=== PATIENT | male | born 1945 | race Caucasian/White ===

== ENCOUNTER 2020-08-25 08:44 | Emergency (ER) | payer OTHER, MEDICARE ==
[~2020-08-25] VITALS: Ht 175.3 cm; Wt 83.9 kg
[2020-08-25 10:07] LABS: BASOPHILS ABSOLUTE AUTO 0.03 K/mm3 (0.00-0.23); BASOPHILS PERCENT AUTO 0 % (0-2); EOSINOPHILS ABSOLUTE AUTO 0.06 K/mm3 (0.00-0.68); EOSINOPHILS PERCENT AUTO 1 % (0-6); Hematocrit 48.7 % (37.0-53.0); Hemoglobin 17.5 g/dL (13.5-17.5); IMMATURE GRAN ABSOLUTE AUTO 0.02 K/mm3 (0.00-0.10); IMMATURE GRAN PERCENT AUTO 0 % (0-1); LYMPHOCYTES ABSOLUTE AUTO 1.62 K/mm3 (0.84-5.20); LYMPHOCYTES PERCENT AUTO 21 % (21-46); MONOCYTES ABSOLUTE AUTO 0.84 K/mm3 (0.16-1.47); MONOCYTES PERCENT AUTO 11 % (4-13); Mean Corpuscular HGB 32.5 pg (26.0-34.0); Mean Corpuscular HGB Conc 35.9 g/dL (31.5-36.5); Mean Corpuscular Volume 90 fL (80-100); Mean Platelet Volume 9.6 fL (9.1-12.4); NEUTROPHILS ABSOLUTE AUTO 5.35 K/mm3 (1.96-9.15); NEUTROPHILS PERCENT AUTO 67 % (41-73); Platelet Count 130 K/mm3 (150-400); RDW Coefficient Variation 12.2 % (11.7-14.2); RDW Standard Deviation 40.2 fL (35.1-46.3); Red Blood Cell Count 5.39 M/mm3 (4.30-5.90); White Blood Cell Count 7.92 K/mm3 (4.00-11.30)
[2020-08-25 10:22] LABS: Alanine Aminotransfer (ALT/SGP 49 U/L (12-78); Albumin, Blood 3.8 g/dL (3.4-5.0); Albumin/Globulin Ratio 1.1 (0.8-1.8); Alk Phos 82 U/L (50-136); Anion Gap 6 mmol/L (6-16); Aspartate Aminotrans (AST/SGOT 24 U/L (12-37); Blood Urea Nitrogen 18 mg/dL (8-24); Bun/Creatinine Ratio 26.9 (12.0-20.0); CO2, Blood 27 mmol/L (21-32); Calcium, Blood 9.2 mg/dL (8.5-10.1); Chloride, Blood 103 mmol/L (98-108); Creatinine, Blood 0.67 mg/dL (0.60-1.20); Globulin, Blood 3.5 g/dL (2.2-4.0); Glomerular Filtration Rate >60 (60-); Glucose, Blood 294 mg/dL (70-99); Potassium, Blood 4.5 mmol/L (3.5-5.5); Sodium, Blood 136 mmol/L (136-145); Total Protein, Blood 7.3 g/dL (6.4-8.2)
[2020-08-25] MEDS ORDERED: BACTRIM DS TAB1 EAC1 PO (12:06)
[2020-08-25] MEDS ORDERED: HYDR1TAB94 PO (12:06)
== END 2020-08-25 12:33 | disposition home or self-care (01) ==
LOC: ER 08:44
PROVIDERS: Emergency Medicine
DX: J32.9 Chronic sinusitis, unspecified (principal)
CPT/HCPCS: 36415; 70487; 80053; 85025; 96365-59; 99284-25; J3370; Q9967

== ENCOUNTER → 2020-08-26 | Outpatient (CLI) | payer MEDICARE, OTHER ==
[~2020-08-26] MED LIST: BACTRIM DS TAB1 EAC1 PO; HYDR1TAB94 PO
== END | disposition home or self-care (01) ==
LOC: LAB SHORT 13:00 → LAB 13:00
DX: L02.91 Cutaneous abscess, unspecified (principal)
CPT/HCPCS: 87070; 87075; 87077; 87186; 87205

== ENCOUNTER 2021-08-21 17:08 | Day surgery (SDC) | payer OTHER, MEDICARE ==
--- NOTE | 2021-08-21 17:03 | NUR ---
15 MIN POST INFUSION CHECK. PT HAS NO COMPLAINTS. SITTING IN CHAIR WATCHING TV
[~2021-08-21 17:08] MED LIST changes: +ALOGLIPTIN25 M1 PO; +ASPI81CH PO; +ATOR40TA PO; +Buspirone HCl15 MG PO; +DICLOFENAC SOD100 G1 TOP; +FINA5 PO; +GLIP10 PO; +JARDIANCE25 MG PO; +METF500 PO; +METO50ER PO
--- NOTE | 2021-08-21 17:32 | NUR ---
30 AND 45 MIN CHECKS DONE. PT CONTINUES TO HAVE NO REQUESTS OR COMPLAINTS. SITTING IN CHAIR WATCHING TV
== END 2021-08-21 17:49 | disposition home or self-care (01) ==
LOC: ATC 17:08
DX: U07.1 COVID-19 (principal)
CPT/HCPCS: M0247

== ENCOUNTER 2024-06-22 18:23 | Observation (INO) | payer OTHER ==
[~2024-06-22] VITALS: Ht 177.8 cm; Wt 74.0 kg
[~2024-06-22 18:23] MED LIST changes: +Aspirin 81 MG Chew PO ONE; +Heparin Sodium,Porcine 5,000 UNIT/0.5 ML SDV SC ONE; +Ticagrelor 90 MG TABLET PO ONE
[2024-06-22] MEDS ORDERED: Verapamil HCL 2.5 MG/ML 2ML Injection ONE (19:01)
[2024-06-22] MEDS ORDERED: FentaNYL Citrate 50 MCG/ML 2 ML Injection ONE (19:01)
[2024-06-22] MEDS ORDERED: NS 2,000 ML IV ONE (19:02)
[2024-06-22] MEDS ORDERED: NS 250 ML IV ONE (19:02)
[2024-06-22] MEDS ORDERED: Midazolam HCl 1MG / ML 2ML Vial ONE (19:02)
[2024-06-22] MEDS ORDERED: Heparin Sodium 1000 Units/ML 10ML MDV ONE (19:02)
[2024-06-22] MEDS ORDERED: Nitroglycerin 2 MG/20 ML BTL ONE (19:03)
[2024-06-22 19:12] LABS: BASOPHILS ABSOLUTE AUTO 0.03 K/mm3 (0.00-0.23); BASOPHILS PERCENT AUTO 0 % (0-2); EOSINOPHILS ABSOLUTE AUTO 0.23 K/mm3 (0.00-0.68); EOSINOPHILS PERCENT AUTO 3 % (0-6); Hematocrit 50.9 % (37.0-53.0); Hemoglobin 18.2 g/dL (13.5-17.5); IMMATURE GRAN ABSOLUTE AUTO 0.02 K/mm3 (0.00-0.10); IMMATURE GRAN PERCENT AUTO 0 % (0-1); LYMPHOCYTES ABSOLUTE AUTO 2.03 K/mm3 (0.84-5.20); LYMPHOCYTES PERCENT AUTO 22 % (21-46); MONOCYTES ABSOLUTE AUTO 1.11 K/mm3 (0.16-1.47); MONOCYTES PERCENT AUTO 12 % (4-13); Mean Corpuscular HGB 32.9 pg (26.0-34.0); Mean Corpuscular HGB Conc 35.8 g/dL (31.5-36.5); Mean Corpuscular Volume 92 fL (80-100); Mean Platelet Volume 9.7 fL (9.1-12.4); NEUTROPHILS ABSOLUTE AUTO 5.67 K/mm3 (1.96-9.15); NEUTROPHILS PERCENT AUTO 63 % (41-73); Platelet Count 128 K/mm3 (150-400); RDW Coefficient Variation 11.7 % (11.7-14.2); RDW Standard Deviation 39.8 fL (35.1-46.3); Red Blood Cell Count 5.54 M/mm3 (4.30-5.90); White Blood Cell Count 9.09 K/mm3 (4.00-11.30)
[2024-06-22 19:26] LABS: International Normalized Ratio 0.94; Prothrombin Time Results 10.1 Sec (9.7-11.5)
[2024-06-22 19:27] LABS: Albumin, Blood 4.4 g/dL (3.4-5.0); Albumin/Globulin Ratio 1.3 (0.8-1.8); Bun/Creatinine Ratio 34.6 (12.0-20.0); Calcium, Blood 10.1 mg/dL (8.5-10.1); Creatinine, Blood 0.64 mg/dL (0.60-1.20); Globulin, Blood 3.4 g/dL (2.2-4.0); Potassium, Blood 4.3 mmol/L (3.5-5.5); Total Protein, Blood 7.8 g/dL (6.4-8.2)
[2024-06-22] MEDS ORDERED: Atropine Sulfate 0.1 MG/ML 10ML SYR ONE (19:42)
[2024-06-22] MEDS ORDERED: Phenylephrine HCl 100 MCG/ML-NS 10MLSYR (1MG/10ML) ONE (19:42)
[2024-06-22 20:33] VITALS: BP 118/58
[2024-06-22] MEDS ORDERED: GLIP10 (20:47)
[2024-06-22] MEDS ORDERED: DULO60 PO (20:47)
[2024-06-22] MEDS ORDERED: POTA10T PO (20:48)
[2024-06-22] MEDS ORDERED: MAGNESIUM OXID500 MG PO (20:49)
[2024-06-22] MEDS ORDERED: MELO7.5 PO (20:49)
[2024-06-22 20:53] LABS: Calcium, Ionized (POC) 1.14 mmol/L (1.10-1.46); Chloride (POC) 99 mmol/L (98-108); Creatinine (POC) 0.7 mg/dL (0.8-1.3); Glucose (ISTAT POC) 205 mg/dL (70-99); Potassium (POC) 4.1 mmol/L (3.5-5.5); Sodium (POC) 137 mmol/L (135-148); Total CO2 (POC) 29 mmol/L (21-32)
[2024-06-22 21:00] VITALS: BP 118/58
[2024-06-22] MEDS ORDERED: Nitroglycerin/D5W 250 ML IV SCH (21:40)
--- NOTE | 2024-06-22 21:47 | NUR ---
THIS RN ASSUMED CARE OF PT AT 2032, PT IS ALERT AND ORIENTED X4, FOLLOWS COMMANDS AND IS NEUROLOGICALLY INTACT. PT HEART RATE IS IN THE 60s, PT WAS RATING CHEST PAIN 0-1 ON THE PAIN SCALE, PT DID NOT RECEIVE ANY INTERVENTIONS IN EEG TECH. BLOOD PRESSURE STABLE AT 118/58. DR. PENN WAS AT BEDSIDE, PROVIDER SAID TO START HEPARIN DRIP 4HRS AFTER TR BAND IS REMOVED, THEN USE NITRO DRIP PRN FOR CHEST PAIN. PT IS BEING TRANSPORTED TO [facility], MAEVE CARBAJAL IS THE ACCEPTING DOCTOR. PT IS AWARE AND WILL BE NOTIFIED ONCE PT GETS PICKED UP BY [facility] TRANSP[facility]. PT SOUNDS CLEAR/DIMINISHED, ON ROOM AIR SATTING >95%, PT DENIES SHORTNESS OF BREATH. PT VOIDS APPROPRIATELY. NO OTHER INTERVENTIONS AT THIS TIME. THIS RN WILL ATTEMPT TO REMOVE TR BAND PER PROTOCOL. PLAN OF CARE CONTINUED.
[2024-06-22 22:00] VITALS: BP 106/46
[2024-06-22] MEDS ORDERED: FLU VACC TS2024-25(6MOS UP)/PF 45 MCG/0.5 ML SYRINGE IM ONE (22:40)
[2024-06-22] MEDS ORDERED: Ondansetron HCl 2 MG / ML 2ML Vial IV PRN (22:40)
[2024-06-22 23:00] VITALS: BP 137/53
[2024-06-23] VITALS (10 sets, daily range): BP systolic 110–138; BP diastolic 39–71
--- NOTE | 2024-06-23 00:20 | NUR ---
PT ACT WAS 129, LESS THAN 200, PT HAS TR BAND ON RIGHT WRIST. UPON ARRIVAL TO THE ICU PT HAD 12cc OF AIR IN BAND. PT ARRIVED AT 2032. THIS RN TOOK 2cc OF AIR OUT AT 2132, THEN 2cc AT 2142, 2cc AT 2199, 3cc AT 2214, THEN 3cc AT 2229. THIS RN SAW NO BLEEDING AT SITE BUT KEPT BAND ON FOR ONE HOUR PER PROTOCOL. THIS RN ASSESSED SITE AT 2330, NO BLEEDING WAS SEEN, TR BAND WAS TAKEN OFF AND DRESSED WITH A CLEAR DRESSING. NO HEMATOMA PRESENT AND PT REPORTS NO BLEEDING. PT STILL HAVING ST ELEVATION PER MONITOR, WAS NOTIFIED, PROVIDER WANTED TO TREND TROPONIN LEVELS AND TO GET A REPEAT EKG AT 0600 ON 06/23/24, NO NEW INTERVENTIONS AT THIS TIME. PLAN OF CARE CONTINUED, PT IN THE PROCESS OF BEING TRANSFERED TO [facility].
[2024-06-23] MEDS ORDERED: Heparin Sodium,Porcine/0.5 NS 500 ML IV SCH (02:55)
[2024-06-23 03:22] LABS: BASOPHILS ABSOLUTE AUTO 0.03 K/mm3 (0.00-0.23); BASOPHILS PERCENT AUTO 0 % (0-2); EOSINOPHILS ABSOLUTE AUTO 0.15 K/mm3 (0.00-0.68); EOSINOPHILS PERCENT AUTO 2 % (0-6); Hematocrit 47.8 % (37.0-53.0); Hemoglobin 17.1 g/dL (13.5-17.5); IMMATURE GRAN ABSOLUTE AUTO 0.02 K/mm3 (0.00-0.10); IMMATURE GRAN PERCENT AUTO 0 % (0-1); LYMPHOCYTES ABSOLUTE AUTO 1.66 K/mm3 (0.84-5.20); LYMPHOCYTES PERCENT AUTO 18 % (21-46); MONOCYTES ABSOLUTE AUTO 1.19 K/mm3 (0.16-1.47); MONOCYTES PERCENT AUTO 13 % (4-13); Mean Corpuscular HGB 32.9 pg (26.0-34.0); Mean Corpuscular HGB Conc 35.8 g/dL (31.5-36.5); Mean Corpuscular Volume 92 fL (80-100); Mean Platelet Volume 9.9 fL (9.1-12.4); NEUTROPHILS ABSOLUTE AUTO 6.08 K/mm3 (1.96-9.15); NEUTROPHILS PERCENT AUTO 67 % (41-73); Platelet Count 97 K/mm3 (150-400); RDW Coefficient Variation 11.8 % (11.7-14.2); RDW Standard Deviation 39.4 fL (35.1-46.3); White Blood Cell Count 9.13 K/mm3 (4.00-11.30)
[2024-06-23 03:37] LABS: Prothrombin Time Results 10.7 Sec (9.7-11.5)
[2024-06-23 03:44] LABS: Albumin, Blood 3.7 g/dL (3.4-5.0); Albumin/Globulin Ratio 1.2 (0.8-1.8); Bilirubin, Total 1.5 mg/dL (0.1-1.0); Bun/Creatinine Ratio 32.1 (12.0-20.0); Calcium, Blood 9.2 mg/dL (8.5-10.1); Creatinine, Blood 0.56 mg/dL (0.60-1.20); Total Protein, Blood 6.7 g/dL (6.4-8.2)
--- NOTE | 2024-06-23 03:49 | NUR ---
PT SUMMARY PT IS BEING TRANSPORTED TO [facility] ICU ROOM 280. EMS WILL NOT BE ARRIVING UNTIL 0530 06/23/24 TO TRANSPORT PT TO [facility]. WAS NOTIFIED, PROVIDER SAID TO START HEPARIN EARLY FOR TRANSPORTATION. NO OTHER INTERVENTIONS AT THIS TIME. PLAN OF CARE CONTINUED.
== END 2024-06-23 06:38 | disposition short-term general hospital (02) ==
LOC: ER 18:23 → ICUE 18:24 → ER 18:45 → ICUE 19:52
PROVIDERS: Student in an Organized Health Care Education/Training Program; ADMIT Internal Medicine
DX: I21.09 ST elevation (STEMI) myocardial infarction involving other coronary artery of anterior wall (principal); I25.10 Atherosclerotic heart disease of native coronary artery without angina pectoris; E11.9 Type 2 diabetes mellitus without complications; I10 Essential (primary) hypertension; E78.5 Hyperlipidemia, unspecified; F17.210 Nicotine dependence, cigarettes, uncomplicated; Z95.5 Presence of coronary angioplasty implant and graft; Z79.84 Long term (current) use of oral hypoglycemic drugs; Z79.1 Long term (current) use of non-steroidal anti-inflammatories (NSAID); Z79.899 Other long term (current) drug therapy
CPT/HCPCS: 36415; 71045; 76937; 80047; 80053; 82947; 83735; 84484; 85014; 85025; 85347; 85610; 85730; 93005; 93010; 93458; 96374; 99152; 99153; 99291-25; A9270; C1769; C1887; C1894; C8929; J0461; J1644; J2250; J2371; J3010; J7030; J7050; Q9957; Q9967

== ENCOUNTER 2024-07-03 09:37 | Observation (INO) | payer OTHER ==
[~2024-07-03] VITALS: Ht 177.8 cm; Wt 85.2 kg
[~2024-07-03 09:37] MED LIST changes: -Aspirin 81 MG Chew PO ONE; -DICLOFENAC SOD100 G1 TOP; +DICLOFENAC SOD100 GM TOP; +DULO60 PO; -Heparin Sodium,Porcine 5,000 UNIT/0.5 ML SDV SC ONE; +MAGNESIUM OXID500 MG PO; +MELO7.5 PO; +POTA10T PO; -Ticagrelor 90 MG TABLET PO ONE
[2024-07-03] MEDS ORDERED: Ondansetron HCl 2 MG / ML 2ML Vial IV ONE (10:00)
[2024-07-03 10:21] LABS: BASOPHILS ABSOLUTE AUTO 0.02 K/mm3 (0.00-0.23); BASOPHILS PERCENT AUTO 0 % (0-2); EOSINOPHILS PERCENT AUTO 1 % (0-6); Hematocrit 35.2 % (37.0-53.0); Hemoglobin 12.6 g/dL (13.5-17.5); IMMATURE GRAN ABSOLUTE AUTO 0.02 K/mm3 (0.00-0.10); IMMATURE GRAN PERCENT AUTO 0 % (0-1); LYMPHOCYTES ABSOLUTE AUTO 0.93 K/mm3 (0.84-5.20); LYMPHOCYTES PERCENT AUTO 13 % (21-46); MONOCYTES ABSOLUTE AUTO 1.04 K/mm3 (0.16-1.47); MONOCYTES PERCENT AUTO 15 % (4-13); Mean Corpuscular HGB Conc 35.8 g/dL (31.5-36.5); Mean Corpuscular Volume 92 fL (80-100); Mean Platelet Volume 9.3 fL (9.1-12.4); NEUTROPHILS ABSOLUTE AUTO 4.97 K/mm3 (1.96-9.15); NEUTROPHILS PERCENT AUTO 70 % (41-73); Platelet Count 200 K/mm3 (150-400); RDW Coefficient Variation 11.9 % (11.7-14.2); RDW Standard Deviation 39.9 fL (35.1-46.3); Red Blood Cell Count 3.82 M/mm3 (4.30-5.90); White Blood Cell Count 7.08 K/mm3 (4.00-11.30)
[2024-07-03 10:43] LABS: Albumin, Blood 3.2 g/dL (3.4-5.0); Albumin/Globulin Ratio 0.9 (0.8-1.8); Bilirubin, Total 0.9 mg/dL (0.1-1.0); Bun/Creatinine Ratio 34.2 (12.0-20.0); Calcium, Blood 9.7 mg/dL (8.5-10.1); Creatinine, Blood 0.64 mg/dL (0.60-1.20); Globulin, Blood 3.4 g/dL (2.2-4.0); Potassium, Blood 4.5 mmol/L (3.5-5.5); Total Protein, Blood 6.6 g/dL (6.4-8.2)
[2024-07-03 10:55] LABS: CORONAVIRUS COVID-19 AG Negative (NEGATIVE); INFLUENZA A AG Negative (NEGATIVE); INFLUENZA B AG Negative (NEGATIVE)
[2024-07-03] MEDS ORDERED: FLU VACC TS2024-25(6MOS UP)/PF 45 MCG/0.5 ML SYRINGE IM SCH (13:20)
[2024-07-03] MEDS ORDERED: METO25 PO (13:25)
[2024-07-03] MEDS ORDERED: FURO20 PO (13:25)
[2024-07-03] MEDS ORDERED: PANT40 PO (13:25)
[2024-07-03] MEDS ORDERED: Amiodarone HCl200 MG PO (13:26)
[2024-07-03] MEDS ORDERED: CLOP75 PO (13:26)
[2024-07-03] MEDS ORDERED: Ondansetron HCl 2 MG / ML 2ML Vial IV PRN (13:45)
[2024-07-03] MEDS ORDERED: Aspirin 81 MG Chew PO SCH (14:15)
[2024-07-03] MEDS ORDERED: NS 1,000 ML IV SCH ×2 (15:25→15:40)
[2024-07-03 16:15] VITALS: BP 132/50
--- NOTE | 2024-07-03 17:53 | NUR ---
SHIFT SUMMARY PT REMAINS ALERT AND ORIENTED. BP STABLE. HR REMAINS NSR. O2 SATS REMAIN ABOVE 90% ON RA. PT CONTINUES TO DENY ANY PAIN. PT DID COMPLAIN OF NAUSEA AND WAS DRY HEAVING THIS AFTERNOON. PT MEDICATED PER EMAR. DR. CARLOS UPDATED. PT UP AMBULATING IN THE ROOM STEADY ON HIS FEET. NS INFUSING PER ORDERS. WILL REPORT OFF TO ONCOMING RN
[2024-07-03] MEDS ORDERED: Insulin Human Lispro 100 Units/ML 3ML Syringe SC SCH (18:00)
[2024-07-03 20:48] VITALS: BP 117/73
[2024-07-03] MEDS ORDERED: Amiodarone HCl 200 MG Tab PO SCH (21:00)
[2024-07-04 00:17] VITALS: BP 118/86
[2024-07-04 04:03] VITALS: BP 108/67
[2024-07-04] MEDS ORDERED: Pantoprazole Sodium 40 MG Injection IV SCH (06:00)
--- NOTE | 2024-07-04 06:06 | NUR ---
SHIFT SUMMARY PATIENT ALERT AND ORIENTED X4. DENIES HAVING HAD ANY CHEST PAIN OR NAUSEA OVERNIGHT. ON ROOM AIR WITH SPO2 >90%. VITAL SIGNS STABLE. NO ACUTE ISSUES NOTED OVERNIGHT. WILL CONTINUE TO MONITOR. CALL LIGHT WITHIN REACH.
[2024-07-04 06:15] LABS: BASOPHILS ABSOLUTE AUTO 0.01 K/mm3 (0.00-0.23); BASOPHILS PERCENT AUTO 0 % (0-2); EOSINOPHILS PERCENT AUTO 1 % (0-6); Hematocrit 35.7 % (37.0-53.0); Hemoglobin 12.6 g/dL (13.5-17.5); IMMATURE GRAN ABSOLUTE AUTO 0.03 K/mm3 (0.00-0.10); IMMATURE GRAN PERCENT AUTO 0 % (0-1); LYMPHOCYTES ABSOLUTE AUTO 0.95 K/mm3 (0.84-5.20); LYMPHOCYTES PERCENT AUTO 13 % (21-46); MONOCYTES ABSOLUTE AUTO 1.06 K/mm3 (0.16-1.47); MONOCYTES PERCENT AUTO 14 % (4-13); Mean Corpuscular HGB 33.1 pg (26.0-34.0); Mean Corpuscular HGB Conc 35.3 g/dL (31.5-36.5); Mean Corpuscular Volume 94 fL (80-100); Mean Platelet Volume 9.3 fL (9.1-12.4); NEUTROPHILS ABSOLUTE AUTO 5.35 K/mm3 (1.96-9.15); NEUTROPHILS PERCENT AUTO 71 % (41-73); Platelet Count 221 K/mm3 (150-400); RDW Coefficient Variation 12.1 % (11.7-14.2); RDW Standard Deviation 41.4 fL (35.1-46.3); Red Blood Cell Count 3.81 M/mm3 (4.30-5.90)
[2024-07-04 06:48] LABS: Albumin, Blood 2.9 g/dL (3.4-5.0); Albumin/Globulin Ratio 0.9 (0.8-1.8); Bilirubin, Total 0.8 mg/dL (0.1-1.0); Bun/Creatinine Ratio 17.5 (12.0-20.0); Creatinine, Blood 0.74 mg/dL (0.60-1.20); Globulin, Blood 3.2 g/dL (2.2-4.0); Potassium, Blood 4.1 mmol/L (3.5-5.5); Total Protein, Blood 6.1 g/dL (6.4-8.2)
[2024-07-04] MEDS ORDERED: Insulin Human Lispro 100 Units/ML 3ML Syringe SC SCH (07:30)
[2024-07-04 08:17] VITALS: BP 110/78
[2024-07-04] MEDS ORDERED: Clopidogrel Bisulfate 75 MG Tab PO SCH (09:00)
[2024-07-04] MEDS ORDERED: Apixaban 5 MG Tab PO SCH (09:00)
[2024-07-04] MEDS ORDERED: Metoprolol Succinate 50 MG TABCR PO SCH (09:00)
[2024-07-04] MEDS ORDERED: Enoxaparin 40 MG/0.4 ML SYR SC SCH (09:00)
[2024-07-04] MEDS ORDERED: Metoprolol Succinate 25 MG TABCR PO SCH (09:00)
--- NOTE | 2024-07-04 11:00 | NUR ---
UPDATE LEGAL REFEREE NOTIFIED THIS RN AT 1037 THAT PT HAS CONVERTED TO SINUS RHYTHM. MD NOTIFIED WHILE IN ROOM TALKING WITH PT.
[2024-07-04] MEDS ORDERED: Empagliflozin 25 MG TAB PO SCH (12:00)
[2024-07-04] MEDS ORDERED: Atorvastatin 40 MG Tab PO SCH (13:00)
[2024-07-04] MEDS ORDERED: ELIQUIS5 M2 PO ×2 (14:39)
[2024-07-04] MEDS ORDERED: ONDA4ODT MM (14:40)
--- NOTE | 2024-07-04 15:30 | NUR ---
DISCHARGE UPDATE DISCHARGE PACKET GONE OVR WITH PT AND PT 1510. PT DISCHARGED AT 1525 VIA WHEELCHAIR AND IN RA. PT ABLE TO TRANSFER SELF TO AND FROM WHEELCHAIR ON HIS OWN, TOLERATED WELL. PT PERSONAL BELONGINGS WITH PT AT TIME OF DISCHARGE ALONG WITH DISCHARGE PACKET.
== END 2024-07-04 16:05 | disposition home or self-care (01) ==
LOC: ER 09:37 → PCU 09:38 → ER 13:18 → PCU 13:18 → ER 15:08 → EDBEDREQSVC 15:29 → EDBEDREQ 15:29 → PCU 16:12
PROVIDERS: Student in an Organized Health Care Education/Training Program; ADMIT Hospitalist
DX: I25.10 Atherosclerotic heart disease of native coronary artery without angina pectoris (principal); E11.9 Type 2 diabetes mellitus without complications; I48.91 Unspecified atrial fibrillation; I48.92 Unspecified atrial flutter; I10 Essential (primary) hypertension; E78.5 Hyperlipidemia, unspecified; Z79.84 Long term (current) use of oral hypoglycemic drugs; Z79.899 Other long term (current) drug therapy; Z95.1 Presence of aortocoronary bypass graft
CPT/HCPCS: 36415; 71045; 80053; 82947; 83690; 84484; 85025; 85651; 87428-QW; 93005; 93010; 93306; 94762; 96374; 99285-25; A9270; G0378; J2405; J2470; J7030

== ENCOUNTER 2024-07-08 10:31 | Observation (INO) | payer OTHER ==
[~2024-07-08] VITALS: Ht 177.8 cm; Wt 82.0 kg
[~2024-07-08 10:31] MED LIST changes: +Amiodarone HCl200 MG PO; +CLOP75 PO; +ELIQUIS5 M2 PO; +FURO20 PO; +METO25 PO; +ONDA4ODT MM; +PANT40 PO
[2024-07-08 11:05] LABS: BASOPHILS ABSOLUTE AUTO 0.03 K/mm3 (0.00-0.23); BASOPHILS PERCENT AUTO 0 % (0-2); EOSINOPHILS ABSOLUTE AUTO 0.07 K/mm3 (0.00-0.68); EOSINOPHILS PERCENT AUTO 1 % (0-6); Hematocrit 39.8 % (37.0-53.0); Hemoglobin 14.1 g/dL (13.5-17.5); IMMATURE GRAN ABSOLUTE AUTO 0.04 K/mm3 (0.00-0.10); IMMATURE GRAN PERCENT AUTO 1 % (0-1); LYMPHOCYTES ABSOLUTE AUTO 1.11 K/mm3 (0.84-5.20); LYMPHOCYTES PERCENT AUTO 13 % (21-46); MONOCYTES PERCENT AUTO 8 % (4-13); Mean Corpuscular HGB 32.7 pg (26.0-34.0); Mean Corpuscular HGB Conc 35.4 g/dL (31.5-36.5); Mean Corpuscular Volume 92 fL (80-100); Mean Platelet Volume 8.7 fL (9.1-12.4); NEUTROPHILS ABSOLUTE AUTO 6.67 K/mm3 (1.96-9.15); NEUTROPHILS PERCENT AUTO 77 % (41-73); Platelet Count 328 K/mm3 (150-400); RDW Standard Deviation 40.4 fL (35.1-46.3); Red Blood Cell Count 4.31 M/mm3 (4.30-5.90); White Blood Cell Count 8.62 K/mm3 (4.00-11.30)
[2024-07-08 11:06] LABS: Calcium, Ionized (POC) 1.09 mmol/L (1.10-1.46); Chloride (POC) 90 mmol/L (98-108); Creatinine (POC) 0.9 mg/dL (0.8-1.3); Glucose (ISTAT POC) 147 mg/dL (70-99); Hemoglobin (POC) 12.9 g/dL (13.5-17.5); Potassium (POC) 4.5 mmol/L (3.5-5.5); Sodium (POC) 128 mmol/L (135-148); Total CO2 (POC) 28 mmol/L (21-32)
[2024-07-08] MEDS ORDERED: Aspirin 325 MG Tab PO ONE (11:15)
[2024-07-08] MEDS ORDERED: FentaNYL Citrate 50 MCG/ML 2 ML Injection IV ONE ×2 (11:15→13:45)
[2024-07-08 11:35] LABS: Albumin, Blood 3.5 g/dL (3.4-5.0); Bilirubin, Total 0.8 mg/dL (0.1-1.0); Bun/Creatinine Ratio 17.7 (12.0-20.0); Calcium, Blood 9.3 mg/dL (8.5-10.1); Creatinine, Blood 0.79 mg/dL (0.60-1.20); Globulin, Blood 3.4 g/dL (2.2-4.0); Potassium, Blood 4.6 mmol/L (3.5-5.5); Total Protein, Blood 6.9 g/dL (6.4-8.2)
[2024-07-08 12:30] LABS: Influenza A, PCR NEGATIVE (NEGATIVE); Influenza B, PCR NEGATIVE (NEGATIVE); Resp Syncytial Virus, PCR NEGATIVE (NEGATIVE); SARS-Cov-2 (COVID-19) PCR, MMC NEGATIVE (NEGATIVE)
[2024-07-08] MEDS ORDERED: FLU VACC TS2024-25(6MOS UP)/PF 45 MCG/0.5 ML SYRINGE IM SCH (15:20)
[2024-07-08] MEDS ORDERED: Acetaminophen 325 MG TABLET PO PRN (16:00)
[2024-07-08] MEDS ORDERED: OxyCODONE HCL 5 MG TAB PO PRN (16:00)
[2024-07-08] MEDS ORDERED: Furosemide 10 MG/ML 4ML Vial IV ONE (16:00)
[2024-07-08] MEDS ORDERED: Empagliflozin 10 MG TAB PO SCH (16:00)
[2024-07-08] MEDS ORDERED: Docusate Sodium/Senna 1 Tab PO PRN (16:00)
[2024-07-08] MEDS ORDERED: Morphine Sulfate 4 MG/1 ML Injection IV PRN (16:00)
[2024-07-08] MEDS ORDERED: Ondansetron HCl 2 MG / ML 2ML Vial IV PRN (16:00)
[2024-07-08] MEDS ORDERED: Insulin Human Lispro 100 Units/ML 3ML Syringe SC SCH (16:30)
--- NOTE | 2024-07-08 17:15 | NUR ---
PT ADMITTED FROM THE ED. PT'S AT BEDSIDE. PT ORIENTED TO ROOM AND CALL LIGHT IN REACH. PT DESCRIBES MINIMAL LEFT ARM PAIN.
[2024-07-08 17:16] VITALS: BP 164/63
--- NOTE | 2024-07-08 18:59 | NUR ---
SHIFT SUMMARY PT ADMITTED FROM ED THIS EVENING. PT IS A/OX4, INDEPENDENT IN THE ROOM. DESCRIBES LITTLE LEFT ARM PAIN. ON RA. PT CALL APPROPRIATELY USING THE CALL LIGHT.
[2024-07-08 19:48] VITALS: BP 121/62
[2024-07-08] MEDS ORDERED: Atorvastatin 40 MG Tab PO SCH (21:00)
[2024-07-09 01:07] VITALS: BP 141/68
[2024-07-09] MEDS ORDERED: Nitroglycerin 0.4 MG SUBL ONE (01:39)
[2024-07-09] MEDS ORDERED: Nitroglycerin 0.4 MG SUBL SL PRN (01:40)
[2024-07-09 01:46] VITALS: BP 115/59
[2024-07-09 01:57] VITALS: BP 97/55
--- NOTE | 2024-07-09 02:46 | NUR ---
THIS RN OFF FLOOR, BREAK NURSE COVERING, WHEN PT C/O LEFT ARM/SHOULDER PAIN- MEDICATED WITH MORPHINE PER EMAR AT 0117, EKG OBTAINED, AND ORDER FOR TELE AND NITRO OBTAINED BY BREAK NURSE. WHEN THIS RN BACK FROM BREAK AT 0145, PT STATED PAIN WAS 4/10 TO LEFT ARM/SHOULDER. SL NITRO GIVEN X1 WITH PAIN DOWN TO ZERO. TELEMETRY SHOWING NSR.
[2024-07-09 04:11] VITALS: BP 123/67
--- NOTE | 2024-07-09 04:35 | NUR ---
SHIFT SUMMARY PT WITH ONE EPISODE OF LEFT ARM/ SHOULDER PAIN- SEE PRIOR NOTE. DENIES ANY FURTHER PAIN. TELE PLACED AND SHOWING SR. PT SLEPT INTERMITTENTLY DURING THE NIGHT. PT UP IN ROOM WITH STEADY GAIT. BED IN LOWEST POSITION, CALL LIGHT WITHIN REACH, SIDERAILS UP X2.
[2024-07-09 06:23] LABS: BASOPHILS ABSOLUTE AUTO 0.04 K/mm3 (0.00-0.23); BASOPHILS PERCENT AUTO 1 % (0-2); EOSINOPHILS ABSOLUTE AUTO 0.11 K/mm3 (0.00-0.68); EOSINOPHILS PERCENT AUTO 1 % (0-6); Hematocrit 42.8 % (37.0-53.0); Hemoglobin 15.1 g/dL (13.5-17.5); IMMATURE GRAN ABSOLUTE AUTO 0.03 K/mm3 (0.00-0.10); IMMATURE GRAN PERCENT AUTO 0 % (0-1); LYMPHOCYTES ABSOLUTE AUTO 1.15 K/mm3 (0.84-5.20); LYMPHOCYTES PERCENT AUTO 14 % (21-46); MONOCYTES ABSOLUTE AUTO 0.84 K/mm3 (0.16-1.47); MONOCYTES PERCENT AUTO 10 % (4-13); Mean Corpuscular HGB 32.2 pg (26.0-34.0); Mean Corpuscular HGB Conc 35.3 g/dL (31.5-36.5); Mean Corpuscular Volume 91 fL (80-100); Mean Platelet Volume 8.8 fL (9.1-12.4); NEUTROPHILS ABSOLUTE AUTO 6.36 K/mm3 (1.96-9.15); NEUTROPHILS PERCENT AUTO 75 % (41-73); Platelet Count 326 K/mm3 (150-400); RDW Coefficient Variation 12.4 % (11.7-14.2); RDW Standard Deviation 40.6 fL (35.1-46.3); Red Blood Cell Count 4.69 M/mm3 (4.30-5.90); White Blood Cell Count 8.53 K/mm3 (4.00-11.30)
[2024-07-09 06:54] LABS: Albumin, Blood 3.4 g/dL (3.4-5.0); Bun/Creatinine Ratio 16.9 (12.0-20.0); Calcium, Blood 9.2 mg/dL (8.5-10.1); Creatinine, Blood 0.77 mg/dL (0.60-1.20); Globulin, Blood 3.5 g/dL (2.2-4.0); Potassium, Blood 4.3 mmol/L (3.5-5.5); Total Protein, Blood 6.9 g/dL (6.4-8.2)
[2024-07-09 07:10] VITALS: BP 125/68
[2024-07-09] MEDS ORDERED: Aspirin 81 MG Chew PO SCH ×2 (09:00)
[2024-07-09] MEDS ORDERED: Enoxaparin 40 MG/0.4 ML SYR SC SCH (09:00)
[2024-07-09] MEDS ORDERED: Metoprolol Succinate 25 MG TABCR PO SCH (09:00)
[2024-07-09] MEDS ORDERED: Amiodarone HCl 200 MG Tab PO SCH (09:00)
[2024-07-09] MEDS ORDERED: Clopidogrel Bisulfate 75 MG Tab PO SCH (09:00)
[2024-07-09] MEDS ORDERED: Metoprolol Tartrate 25 MG Tab PO SCH ×2 (10:20→21:00)
[2024-07-09] MEDS ORDERED: ACET500 PO ×2 (11:35)
[2024-07-09] MEDS ORDERED: ASPI81CH PO (11:35)
[2024-07-09] MEDS ORDERED: OXAYDO5 M1 PO ×2 (11:37)
[2024-07-09] MEDS ORDERED: IBUP600 PO ×2 (11:38)
--- NOTE | 2024-07-09 12:00 | NUR ---
DISCHARGE NOTE PT A&OX4. PT ADMITTED DUE TO CHEST PAIN. PT DENIED CHEST PAIN THIS AM. CARDIOLOGY SAW PT, STATED "HE IS CLEARED FROM THEIR STANDPOINT." THIS AM GAVE PT HOME MEDS. PT STATED HE TAKES 12.5MG OF METOPROLOL, CALLED DR. BARAKAT NOTIFIED ABOUT CARDIOLOGY STOPPING BY AND HOME MED DOSE, GAVE TELEPHONE ORDER TO UPDATE DOSE OF METOPROLOL. YUVAL ORDERED DISCHARGE. PT D/C IV. TELE D/C. MEDS FAXED TO PREFERRED PHARMACY. WENT OVER DISCHARGE INSTRUCTIONS AND MEDS. PT STATED "UNDERSTANDING OF DISCHARGE. PT EATS ADEQUATE. INDEPENDENT IN ROOM. AT BEDSIDE. PT WENT WITH HARD SCRIPT, COPY IN CHART. PT WENT WITH PERSONAL BELONGINGS, ESCORTED OUT VIA WHEELCHAIR BY AUTOMOTIVE TECHNICIAN.
[2024-07-10] MEDS ORDERED: Pantoprazole Sodium 20 MG Tab PO SCH (06:00)
== END 2024-07-09 12:08 | disposition home or self-care (01) ==
LOC: ER 10:31 → MEDS 10:32
PROVIDERS: Physician Assistant; Student in an Organized Health Care Education/Training Program; ADMIT Family Medicine
DX: M75.32 Calcific tendinitis of left shoulder (principal); R07.89 Other chest pain; I25.10 Atherosclerotic heart disease of native coronary artery without angina pectoris; I11.0 Hypertensive heart disease with heart failure; I50.32 Chronic diastolic (congestive) heart failure; E11.9 Type 2 diabetes mellitus without complications; I48.92 Unspecified atrial flutter; E78.5 Hyperlipidemia, unspecified; F17.210 Nicotine dependence, cigarettes, uncomplicated; Z79.84 Long term (current) use of oral hypoglycemic drugs; Z79.899 Other long term (current) drug therapy; Z95.5 Presence of coronary angioplasty implant and graft
CPT/HCPCS: 0241U; 36415; 71045; 71046; 71260; 73030; 80047; 80053; 82947; 83880; 84145; 84484; 85014; 85025; 93005; 93010; 93308; 96372; 96374-59; 96375; 96376; 96376-59; 99285-25; A9270; G0378; J1650; J1940; J2270; J3010; Q9967